=== PATIENT | female | born 1935 | race Caucasian/White ===

== ENCOUNTER → 2016-07-15 | Outpatient (CLI) | payer OTHER ==
[2016-05-17 14:19] VITALS: BP 135/61
[~2016-07-15] MED LIST: NS 100 ML IV 100 ML IV ONE
[2016-07-15 10:03] LABS: CREATININE 0.91 mg/dL (0.55-1.02)
--- NOTE | 2016-07-15 11:52 | CT ---
HISTORY: Headache Study: CT sinuses with contrast Comparison: None Technique: Axial post-contrast images with coronal and sagittal reformats. Dose reduction procedures were used with MA/kv adjusted for body size. Findings: The frontal, ethmoid, maxillary, and right sphenoid sinuses are clear. There is mucosal thickening i n the left sphenoid sinus likely inflammatory in origin. Postsurgical changes are present in both ma xillary sinuses. The nasal septum is midline. The middle ear spaces and mastoid air cells on the lef t are clear. There is fluid in the right mastoid air cells which can be seen in mastoiditis. IMPRESSION: Mucosal thickening in the left sphenoid sinus likely inflammatory in origin The remainder the paranasal sinuses are clear. Postsurgical changes in the maxillary sinuses bilaterally Fluid in the right mastoid air cells which can be seen in and mastoiditis. Clinical correlation is r ecommended. Note: Noncontrast CT of the sinuses has been shown to be an accurate [place] for evaluating for inflammat ory sinus disease the stating the expense and risk of iodinated contrast. In the situation of nasal and sinus masses follow up CT with contrast could and some additional information. Reported By:
== END ==
LOC: RAD 09:26
PROVIDERS: ATTEND Internal Medicine Cardiovascular Disease
DX: R51 Headache (principal)
CPT/HCPCS: 36415; 70487; 82565; 84520; A4222

== ENCOUNTER → 2016-09-10 | Outpatient (CLI) | payer OTHER ==
[2016-05-17 14:19] VITALS: BP 135/61
[2016-09-10 16:17] LABS: C-REACTIVE PROTEIN 37.7 mg/L (0-3.0); URIC ACID 3.8 mg/dL (2.6-6.0)
--- NOTE | 2016-09-10 16:22 | RAD ---
HISTORY: Right wrist pain and swelling, nontraumatic Study: Right wrist three view Comparison: None Findings: There is no definite evidence for acute bone or acute joint abnormality. No fracture, lytic, or vidhi tic lesion is identified. No erosive arthritis is present. Degenerative joint disease is present in the 1st carpometacarpal join, the radioscaphoid joint, and the scapho greater multangular joint. IMPRESSION: Degenerative joint disease as described above Reported By:
--- NOTE | 2016-09-10 16:31 | VAS ---
HISTORY: Extremity pain, swelling, and edema Study: Right upper extremity Doppler venous ultrasound. TECHNIQUE: Multiple jaimes scale and color flow Doppler images of the deep venous system were obtaine d of the upper extremity. FINDINGS: The deep venous system of the right upper extremity evaluated from the level of the inter nal jugular vein through the radial and ulnar veins. Normal color flow and augmentation can be obse rved. In addition, normal compression is seen throughout the upper extremity deep venous system. No soft tissue hematoma is seen. IMPRESSION: 1. Negative examination for DVT. Reported By:
--- NOTE | 2016-09-10 16:35 | RAD ---
History: Right hand pain and swelling for 3 days Study: Three views of the right hand Findings: There is diffuse joint space narrowing and irregularity and osteophyte formation about the interphalangeal joints. There is osteopenia especially about the metacarpal phalangeal joints. Ther e are prominent osteophytes about the 1st metacarpal-carpal joint. 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
== END | disposition home or self-care (01) ==
LOC: RAD 15:24
PROVIDERS: ATTEND Nurse Practitioner Family
DX: M79.601 Pain in right arm (principal); R60.0 Localized edema; M15.0 Primary generalized (osteo)arthritis
CPT/HCPCS: 36415; 73100; 73130; 84550; 85652; 86140; 93971

== ENCOUNTER → 2016-11-19 | Outpatient (CLI) | payer OTHER ==
[2016-05-17 14:19] VITALS: BP 135/61
--- NOTE | 2016-11-19 19:13 | RAD ---
HISTORY: Pain Study: Right knee series Comparison: 10/06/2011 Findings: There is moderate joint space narrowing throughout the knee which is more prominent medially. There i s moderate narrowing of the patellofemoral joint with prominent osteophytes. There is a small suprapa tellar effusion. No fracture or dislocation is seen. The bones are osteopenic. IMPRESSION: Moderate osteoarthritic changes throughout the knee and patellofemoral joint with no acute abnormalit y seen. Osteopenia. Small joint effusion. Reported By:
--- NOTE | 2016-11-20 08:52 | RAD ---
HISTORY: Headache, neck pain Study: 6 views cervical spine Comparison: None Findings: Normal cervical alignment. Vertebral body heights are preserved. Prevertebral soft tissues are normal . There is diffuse multilevel spondylosis with degenerative disc space narrowing most prominent at C5 -C6 and C6-C7. There is bilateral facet arthropathy and uncovertebral spurring present resulting in b ilateral foraminal stenosis at C5-C6 and C6-C7. The visualized odontoid process appears intact. No ev idence of acute fracture or subluxation. Visualized lung apices are clear. IMPRESSION: 1. Multilevel cervical degenerative changes as described. Reported By:
== END | disposition home or self-care (01) ==
LOC: RAD 16:19
PROVIDERS: ATTEND Nurse Practitioner Family
DX: M25.561 Pain in right knee (principal); M54.2 Cervicalgia; M85.88 Other specified disorders of bone density and structure, other site; M17.11 Unilateral primary osteoarthritis, right knee
CPT/HCPCS: 72050; 73564

== ENCOUNTER → 2016-12-12 | Outpatient (CLI) | payer OTHER ==
[2016-05-17 14:19] VITALS: BP 135/61
--- NOTE | 2016-12-12 16:57 | CT ---
HISTORY: Subacute headache, hypertension, syncopal episodes Study: CT brain without contrast Comparison: May 15, 2016 Technique: Multiple axial images of the brain were obtained from the skull base to the vertex withou t administration of IV contrast. AEC was utilized. Findings: No acute intraparenchymal hemorrhage or mass can be identified. No extra-axial fluid collections are seen. No alteration in the attenuation of the brain parenchyma can be identified to suggest acute o r subacute ischemic change. There is chronic periventricular white matter disease observed and age-a ppropriate generalized atrophy with ex vacuo change. There is chronic paranasal sinus mucosal thicke florentin most severe involving the left sphenoid sinus but with small air-fluid levels noted within the b ilateral maxillary sinuses which could indicate an acute component. Small bilateral mastoid effusions are also noted which could indicate mastoiditis as well. IMPRESSION: Intra-axial changes of advancing chronological age without acute intracranial process. Possible acute on chronic paranasal sinusitis and mastoiditis. Reported By:
== END ==
LOC: RAD 14:11
PROVIDERS: ATTEND Nurse Practitioner Family
DX: G44.229 Chronic tension-type headache, not intractable (principal)
CPT/HCPCS: 70450

== ENCOUNTER → 2017-07-06 | Outpatient (CLI) | payer OTHER ==
[2016-05-17 14:19] VITALS: BP 135/61
--- NOTE | 2017-07-06 16:43 | RAD ---
History: COPD Study: Chest PA/lateral Findings: PA and left lateral projections of the chest are compared to the study of 05/15/2016. Heart is enlarged as before and the left-sided permanent cardiac pacemaker remains in place. Soft tissue p rominence in the right infrahilar area is unchanged. There are no pleural effusions. Impression: Cardiomegaly and no evidence of acute disease. Reported By:
== END ==
LOC: RAD 16:13
PROVIDERS: ATTEND Internal Medicine Pulmonary Disease
DX: J44.9 Chronic obstructive pulmonary disease, unspecified (principal)
CPT/HCPCS: 71046

== ENCOUNTER → 2017-07-22 | Outpatient (CLI) | payer OTHER ==
[2016-05-17 14:19] VITALS: BP 135/61
--- NOTE | 2017-07-23 08:43 | MG ---
HISTORY: SCREENING Comparison: January 08, 2012 FINDINGS: Bilateral CC and MLO projections of the right and left breast were obtained. Scattered fibroglandula r tissue is seen to be present without significant interval change. No suspicious architectural dist ortion, mass or clustered microcalcifications can be observed to suggest malignancy. No skin thicken ing or nipple retraction is appreciated. No pathological lymphadenopathy can be identified. Benign- appearing calcifications are noted within the right and left breast. IMPRESSION: NO RADIOGRAPHIC EVIDENCE OF MALIGNANCY. ACR CATEGORY 2 - benign findings. FOLLOW-UP EXAM 1 YEAR. Diagnostic CAD was utilized and reviewed. * 0 (ZERO) - ASSESSMENT INCOMPLETE; ADDITIONAL IMAGING IS NEEDED. * 1/ (ONE) - NEGATIVE. * 2/II (TWO) - BENIGN FINDINGS. * 3/III (THREE) - PROBABLY BENIGN FINDING; SHORT INTERVAL FOLLOW-UP SUGGESTED. * 4/IV (FOUR) - SUSPICIOUS ABNORMALITY; BIOPSY SHOULD BE CONSIDERED. * 5/V - HIGHLY SUSPICIOUS OF MALIGNANCY; BIOPSY SHOULD BE PERFORMED. A NEGATIVE X-RAY REPORT SHOULD NOT DELAY BIOPSY IF A DOMINANT OR CLINICALLY SUSPICIOUS MASS IS PRESENT; 4 TO 8 PERCENT OF CANCERS ARE NOT IDENTIFIED BY X-RAY. A NEGA TIVE REPORT MAY REINFORCE THE CLINICAL IMPRESSION. ADENOSIS AND DENSE BREASTS MAY OBSCURE AN UNDERLY ING NEOPLASM. Reported By:
== END ==
LOC: RAD 13:03
PROVIDERS: ATTEND Specialist
DX: Z12.31 Encounter for screening mammogram for malignant neoplasm of breast (principal)
CPT/HCPCS: 77067